=== PATIENT | female | born 1945 | race Caucasian/White ===

== ENCOUNTER 2019-09-15 07:36 | Day surgery (SDC) | payer MEDICARE, OTHER ==
[~2019-09-15] VITALS: Ht 167.6 cm; Wt 92.6 kg
[2019-09-15] VITALS (8 sets, daily range): BP systolic 137–162; BP diastolic 72–80
[2019-09-15] MEDS ORDERED: diphenhydrAMINE 25mg capsule PO PRN (08:05)
[2019-09-15] MEDS ORDERED: normal saline 1,000 ML IV SCH (08:05)
[2019-09-15] MEDS ORDERED: iohexol 350MG/ML 100ml bottle IV ONE (09:00)
[2019-09-15] MEDS ORDERED: midazolam 2 mg/2 ml injection ONE (09:00)
[2019-09-15] MEDS ORDERED: iohexol 350 MG/ML 50ML vial IV ONE (09:00)
[2019-09-15] MEDS ORDERED: fentaNYL/PF 50MCG/1 ML 2ML syringe ONE (09:00)
[2019-09-15] MEDS ORDERED: LIDOcaine 1% (10mg/ml)w/preservative injection 20ml MDV ONE (09:00)
[2019-09-15 09:15] LABS: ANION GAP 8 (8-16); BLOOD UREA NITROGEN 9 MG/DL (7-18); BUN/CREATININE RATIO 13.4 (6.6-38.0); CALCIUM 8.8 MG/DL (8.5-10.1); CHLORIDE 105 MMOL/L (99-107); CREATININE 0.67 MG/DL (0.40-0.90); GLUCOSE 108 MG/DL (70-104); MAGNESIUM 2.3 MG/DL (1.5-2.4); POTASSIUM 4.1 MMOL/L (3.5-5.1); SODIUM 140 MMOL/L (135-145); TOTAL CARBON DIOXIDE 26.9 MMOL/L (24-32); eGFR 86 ML/MIN
[2019-09-15 09:21] LABS: BASOPHILS # (AUTO) 0.1 X10'3 (0-0.2); EOSINOPHILS # (AUTO) 0.4 X10'3 (0-0.9); HEMATOCRIT 37.2 % (35.0-45.0); HEMOGLOBIN 12.5 g/dl (12.0-16.0); LYMPHOCYTES % (AUTO) 11.4 % (21-51); MEAN CORPUSCULAR HEMOGLOBIN 29.9 PG (27.0-31.0); MEAN CORPUSCULAR HGB CONC 33.5 g/dL (33.0-36.5); MEAN CORPUSCULAR VOLUME 89.3 FL (78-98); MEAN PLATELET VOLUME 6.6 FL (7.4-10.4); MONOCYTES # (AUTO) 0.6 X10'3 (0-0.9); MONOCYTES % (AUTO) 6.7 % (2-12); NEUTROPHILS % (AUTO) 76.9 % (42-75); PLATELET COUNT 531 X10'3 (140-440); RED BLOOD COUNT 4.16 X10'6 (4.20-5.60); RED CELL DISTRIBUTION WIDTH 13.1 % (11.5-14.5); WHITE BLOOD COUNT 9.1 X10'3 (4.5-11.0)
[2019-09-15] MEDS ORDERED: ASPI-1265 PO (09:27)
[2019-09-15] MEDS ORDERED: LEVO150T PO (09:27)
[2019-09-15] MEDS ORDERED: MULT-1085 PO (09:27)
[2019-09-15] MEDS ORDERED: LOSA25TA96 PO (09:27)
[2019-09-15] MEDS ORDERED: ondansetron/PF 4mg/2ml inj IV PRN (10:45)
[2019-09-15] MEDS ORDERED: HYDROcodone/acetaminophen 5mg/325mg tablet PO PRN (10:45)
[2019-09-15] MEDS ORDERED: acetaminophen 325mg tablet PO PRN (10:45)
[2019-09-15] MEDS ORDERED: proCHLORperazine 10 MG/2 ml inj IV PRN (10:45)
[2019-09-15] MEDS ORDERED: HYDROcodone/acetaminophen 10/325mg tab PO PRN (10:45)
[2019-09-15] MEDS ORDERED: normal saline 1000ml 1,000 ML IV SCH (10:45)
== END 2019-09-15 13:00 | disposition home or self-care (01) ==
LOC: SSTAY O 07:36
PROVIDERS: ATTEND Internal Medicine Cardiovascular Disease
DX: I20.0 Unstable angina (principal); I10 Essential (primary) hypertension; E03.9 Hypothyroidism, unspecified; G47.30 Sleep apnea, unspecified; E78.5 Hyperlipidemia, unspecified; Z86.73 Personal history of transient ischemic attack (TIA), and cerebral infarction without residual deficits; M19.90 Unspecified osteoarthritis, unspecified site; Z98.49 Cataract extraction status, unspecified eye; Z96.642 Presence of left artificial hip joint; Z90.49 Acquired absence of other specified parts of digestive tract; Z90.710 Acquired absence of both cervix and uterus; Z98.51 Tubal ligation status; Z79.899 Other long term (current) drug therapy; Z88.8 Allergy status to other drugs, medicaments and biological substances
CPT/HCPCS: 36415; 80048; 83735; 85025; 85610; 93458; 99152; 99153; C1769; C1894; J1644; J2001; J2250; J3010; Q9967; A4620; A6258; C1760